=== PATIENT | female | born 1965 | race Caucasian/White ===

== ENCOUNTER 2018-11-18 12:01 | Observation (INO) ==
[2018-11-18] MEDS ORDERED: ZOFRAN IV PRN (12:52)
[2018-11-18] MEDS ORDERED: DILAUDID IV PRN (12:53)
--- NOTE | 2018-11-18 12:57 | Diag Imaging Result Doc PS360 ---
CHEST-1 VIEW - 11/18/2018 INDICATION: Abdominal Pain COMPARISON: 11/14/2018 FINDINGS: The lungs are normally expanded and clear. Heart size and mediastinal contours are normal. No pneumothorax or pleural effusion. IMPRESSION: Negative exam. Electronically signed by Yared Hartley 11/18/2018 12:55 PM
--- NOTE | 2018-11-18 13:04 | EKG Report ---
Test Performed on : 11/18/2018 12:54:41 PM Test Reason : Abdominal pain Blood Pressure : / mmHG Vent. Rate : 092 BPM Atrial Rate : 092 BPM P-R Int : 166 ms QRS Dur : 072 ms QT Int : 340 ms P-R-T Axes : 042 002 008 degrees QTc Int : 420 ms Normal sinus rhythm. Inferior infarct , age undetermined Cannot rule out Anterior infarct , age undetermined Abnormal ECG When compared with ECG of 09-MAR-2018 16:07, Minimal criteria for Anterior infarct are now present Nonspecific T wave abnormality now evident in Anterior leads Confirmed by Ramses Dye MD ([id number]) on 11/20/2018 6:58:05 AM
[2018-11-18 13:14] LABS: BASO# 0.03 X1000 (0.0-0.2); BASO% 0.5 % (0.0-0.8); EOS# 0.12 X1000 (0.0-0.7); EOS% 1.8 % (0.0-10.0); HEMATOCRIT 36.8 % (37.0-47.0); HEMOGLOBIN 12.2 g/dL (12.0-16.0); LYMPH# 1.12 X1000 (1.2-3.4); LYMPH% 16.9 % (20.5-51.1); MCH 31.2 PG (27-31); MCHC 33.2 g/dL (33-37); MCV 94.1 FL (81-99); MONO# 0.49 X1000 (0.11-0.59); MONO% 7.4 % (1.7-9.3); MPV 10.5 FL (7.4-10.4); NEUT# 4.88 X1000 (1.4-6.5); NEUT% 73.4 % (42.2-75.2); PLT 336 X1000 (130-400); RBC 3.91 XMIL (4.2-5.4); RDW 12.7 % (11.5-14.5); WBC 6.64 X1000 (4.8-10.8)
[2018-11-18 13:36] LABS: AGAP 14; ALB/GLOB RATIO 1.3; ALBUMIN 3.9 g/dL (3.5-5.0); ALKALINE PHOSPHATASE 53 U/L (32-104); BUN 12 mg/dL (8-22); CALCIUM 9.2 mg/dL (8.8-10.2); CHLORIDE 105 mmol/L (98-107); COSMO 276; CREATININE 0.8 mg/dL (0.5-0.9); ESTIMATED GFR > 60; GLUCOSE 114 mg/dL (70-104); GOT 19 U/L (10-30); GPT 22 U/L (10-36); POTASSIUM 3.7 mmol/L (3.5-5.1); SODIUM 138 mmol/L (136-145); TCO2 19 mmol/L (25-35); TOTAL BILIRUBIN < 0.15 mg/dL (0.20-1.00)
[2018-11-18 13:42] LABS: URINE SOURCE CLEAN CATCH
[2018-11-18 13:47] LABS: BILIRUBIN URINE NEGATIVE (NEGATIVE); BLOOD URINE NEGATIVE (NEGATIVE); COLOR YELLOW; GLUCOSE URINE NEGATIVE (NEGATIVE); KETONE URINE TRACE mg/dL (NEGATIVE); LEUKOCYTES URINE TRACE (NEGATIVE); NITRITE URINE NEGATIVE (NEGATIVE); PH URINE 5.5; PROTEIN URINE NEGATIVE (NEGATIVE); SP GRAVITY URINE 1.014; TURBIDITY URINE CLEAR (CLEAR); UROBILINOGEN URINE NORMAL (NORMAL)
[2018-11-18 13:48] LABS: UR EPITHELIAL CELLS <10 /HPF (<10); URINE BACTERIA NEGATIVE /HPF; URINE RBC <10 /HPF (<10); URINE WBC <10 /HPF (<10)
[2018-11-18] MEDS ORDERED: NS 500 ML ONE (17:01)
[2018-11-18] MEDS ORDERED: NORCO-10 PO PRN (17:17)
[2018-11-18] MEDS: PHENERGAN IV PRN ×2 (17:56→22:57)
[2018-11-18] MEDS: LEVAQUIN 750 MG/D5W 750 MG/150 ML IVPB IV SCH (17:57)
[2018-11-18] MEDS: FLAGYL 500 MG/NS 500 MG/100 ML IVPB IV SCH (20:45)
[2018-11-18] MEDS: PROTONIX IV SCH (21:02)
[2018-11-18] MEDS: ZANAFLEX PO SCH (21:02)
[2018-11-18] MEDS: SODIUM CHLORIDE 0.9% INJ PRN ×2 (21:02→22:57)
--- NOTE | 2018-11-18 22:16 | HISTORY AND PHYSICAL ---
HISTORY OF PRESENT ILLNESS: Ms. Avalos is a 53-year-old white female who was admitted with severe abdominal pain, not responding to outpatient therapy. It actually started 5 days ago. She came to the emergency room and was found to have diverticulitis. She was treated with oral Cipro and Flagyl. It did not help, and actually her pain got worse, and we decided to put her in the hospital as she had intermittent vomiting, persistent nausea and severe pain. PAST SURGICAL HISTORY: Cholecystectomy and hysterectomy. MEDICATIONS: Tizanidine, clonazepam and Craig as well as estradiol. She takes Lexapro for depression. SOCIAL HISTORY: Other details reveal a history of smoking, which she has cut down and smokes less than half a pack per day. She does not drink. ALLERGIES: She is allergic to acetaminophen, codeine, hydrocodone bitartrate. REVIEW OF SYSTEMS: Negative for hematemesis, melena, diarrhea or constipation. She has severe abdominal pain. PHYSICAL EXAMINATION: GENERAL: The patient is alert. There is no evidence of lymphadenopathy, thyroid enlargement, pedal edema, calf tenderness, anemia, cyanosis or clubbing. VITAL SIGNS: Temperature is 97.9 degrees Fahrenheit, pulse 62 per minute, respiratory rate 19, blood pressure 116/67. O2 saturation was 99%. HEENT: Head normocephalic. PERRLA. Fundus examination normal. ENT examination unremarkable. NECK: Supple. JVP normal. EXTREMITIES: Pedal pulses well felt. BREASTS: Exam normal. CHEST: Normal inspection. LUNGS: Clear on auscultation. HEART: PMI in the normal position. Heart sounds normal. No murmur, gallop or rub noted. ABDOMEN: Nondistended. Bowel sounds are normal. There is definite tenderness in the left lower quadrant of abdomen with some guarding, but no rigidity. RECTAL: Exam deferred. [employer]: Higher functions: Patient apprehensive. Cranial nerves normal. Motor and sensory system examination unremarkable. Deep tendon reflexes normal. Plantars downgoing. No cerebellar signs or signs of meningeal irritation. Locomotor exam unremarkable. MUSCULOSKELETAL: Skull and spine examination normal for age. SKIN: Exam unremarkable. ASSESSMENT AND PLAN: Initially she had leukocytosis. White count was 15. Today white count is normal; however, she is still having a lot of pain. We are going to continue with intravenous antibiotics, intravenous morphine and Phenergan. cc: Eagle Calvo MD
[2018-11-18] MEDS: MORPHINE IV PRN (22:57)
[2018-11-19] MEDS: FLAGYL 500 MG/NS 500 MG/100 ML IVPB IV SCH ×3 (04:35→20:46)
[2018-11-19] MEDS: SODIUM CHLORIDE 0.9% INJ PRN ×3 (08:04→16:53)
[2018-11-19] MEDS: PHENERGAN IV PRN ×3 (08:04→16:53)
[2018-11-19] MEDS: MORPHINE IV PRN ×4 (08:04→22:16)
[2018-11-19] MEDS: ESTRACE PO SCH (09:03)
[2018-11-19] MEDS: ZANAFLEX PO SCH ×2 (09:03→20:46)
[2018-11-19] MEDS: LEXAPRO PO SCH (09:03)
[2018-11-19] MEDS: KLONOPIN PO SCH (09:03)
--- NOTE | 2018-11-19 12:36 | PROGRESS NOTE ---
DATE: 11/19/2018 Mr. Avalos is feeling better. Her abdomen is soft. There is less pain, less nausea. We are going to put her on regular diet and see how she tolerates it. She is getting IV antibiotics, which we are going to continue. If she continues to improve, we will discharge her in the morning. We will put her on regular diet. -3 cc: Eagle Calvo MD
[2018-11-19] MEDS: LEVAQUIN 750 MG/D5W 750 MG/150 ML IVPB IV SCH (13:14)
[2018-11-19] MEDS: PROTONIX IV SCH (20:47)
[2018-11-19] MEDS: PHENERGAN PO PRN (21:02)
[2018-11-20] MEDS: MORPHINE IV PRN (00:20)
[2018-11-20] MEDS: FLAGYL 500 MG/NS 500 MG/100 ML IVPB IV SCH (03:52)
[2018-11-20 08:01] VITALS: BP 115/65
[2018-11-20] MEDS: LEXAPRO PO SCH (08:25)
[2018-11-20] MEDS: ESTRACE PO SCH (08:25)
[2018-11-20] MEDS: PHENERGAN PO PRN (08:25)
[2018-11-20] MEDS: ZANAFLEX PO SCH (08:26)
[2018-11-20] MEDS: KLONOPIN PO SCH (08:26)
--- NOTE | 2018-11-20 11:44 | DISCHARGE SUMMARY ---
ADMISSION DATE: 11/18/2018 DISCHARGE DATE: 11/20/2018 HISTORY OF PRESENT ILLNESS: Ms. Avalos, who is a 53-year-old white female, was admitted with severe abdominal pain with acute diverticulitis, not responding to outpatient therapy. COURSE IN THE HOSPITAL: Laboratory data: White count, which was 15,000, came down to 6.64, hemoglobin 12.2. Chemistry profile was negative. Total bilirubin was normal. Urinalysis was unremarkable. Chest x-ray was unremarkable, was a negative exam. EKG was normal. We treated with IV Levaquin and IV Flagyl. She is better. She was very nauseous. She was given Phenergan. Overall condition is stable. We will discharge her today upon request. FINAL DIAGNOSIS: Acute diverticulitis. We will be seeing her in the office in about 7 to 10 days. Since there is a drug interaction between tizanidine and Cipro, I told her to hold on tizanidine for a few days and finish her Cipro and Flagyl. cc: Eagle Calvo MD
--- NOTE | 2018-11-20 12:16 | PROGRESS NOTE ---
DATE: 11/20/2018 SUBJECTIVE: Ms. Avalos is feeling better. OBJECTIVE: Her lungs are clear. Urinalysis is negative. Abdomen is soft, nontender. She till is sore in the lower abdomen. She tolerated a regular diet well. PLAN: We will discharge her today. cc: Eagle Calvo MD
== END 2018-11-20 11:17 | disposition home or self-care (01) ==
LOC: DIRADM 12:01 → INTOOBSV 12:01 → EDIPHOLD 12:24 → 4N 15:55
PROVIDERS: ADMIT Internal Medicine; ATTEND Internal Medicine